=== PATIENT | male | born 1930 | race Caucasian/White ===

== ENCOUNTER 2018-05-27 14:20 | Emergency (ER) | payer OTHER ==
[~2018-05-27] VITALS: Ht 180.3 cm; Wt 86.2 kg
--- NOTE | 2018-05-27 14:33 | NUR ---
triage nurse note: No paperwork with medication list or medical history was sent with patient. i spoke to the staff at [facility] who stated they will fax the info soon
--- NOTE | 2018-05-27 14:45 | NUR ---
PATIENT IS AWAKE AND ALERT. STATES HAS SOME BACK PAIN. DENIES CHEST PAIN OR SOB.
[2018-05-27 15:15] LABS: BASOPHILS # (AUTO) 0.1 K/uL (0.0-8.0); BASOPHILS % (AUTO) 0.5 % (0.0-2.0); EOSINOPHILS # (AUTO) 0.2 K/uL (0.0-0.7); EOSINOPHILS % (AUTO) 1.9 % (0.0-7.0); HEMATOCRIT 38.3 % (36.7-47.1); HEMOGLOBIN 12.6 g/dL (12.5-16.3); LYMPHOCYTES # (AUTO) 1.2 K/uL (20.0-40.0); LYMPHOCYTES % (AUTO) 12.4 % (20.5-51.5); MEAN CORPUSCULAR HEMOGLOBIN 25.2 uug (23.8-33.4); MEAN CORPUSCULAR HGB CONC 33 g/dL (32.5-36.3); MEAN CORPUSCULAR VOLUME 76.9 fL (73.0-96.2); MONOCYTES # (AUTO) 0.7 K/uL (2.0-10.0); MONOCYTES % (AUTO) 7.2 % (0.0-11.0); NEUTROPHILS # (AUTO) 7.6 K/uL (1.8-8.9); PLATELET COUNT (AUTO) 236 K/uL (152-348); RED BLOOD CELL COUNT(AUTO) 4.97 MIL/uL (4.06-5.63); WHITE BLOOD COUNT (AUTO) 9.7 K/uL (3.6-10.2)
[2018-05-27 15:17] LABS: CARBON DIOXIDE 28 mmol/L (21-32); CHLORIDE 108 mmol/L (98-107); CREATININE 1.1 mg/dL (0.6-1.3); GLUCOSE 102 mg/dL (74-106); POTASSIUM 4.8 mmol/L (3.5-5.1); UREA NITROGEN, BLOOD 15 mg/dL (7-18)
[2018-05-27 15:23] LABS: ALANINE AMINOTRANSFERASE 25 U/L (16-63); ALKALINE PHOSPHATASE 95 U/L (50-136); ASPARTATE AMINOTRANSFERASE 22 U/L (15-37); BILIRUBIN,DIRECT 0.1 mg/dL (0.0-0.2); BILIRUBIN,TOTAL 0.3 mg/dL (0.2-1.0); TOTAL PROTEIN, SERUM 6.8 g/dL (6.4-8.2)
--- NOTE | 2018-05-27 16:49 | NUR ---
PATIENT'S SON PRESTON CALLED AND STATES HE IS THE POWER OF SHIFT SUPERVISOR MELTING FOR [facility]. STATES HE RATHER HAVE THE PATIENT GO BACK TO [facility] THEN BE ADMITTED TO THE HOSPITAL. I NOTIFIED DR BILLINGSLEY ABOUT THIS. I CALLED [facility] SINCE PATIENT IS A [facility] PATIENT AND ASKED THEM TO HAVE THE [facility] DOCTOR SPEAK TO DR BILLINGSLEY.
--- NOTE | 2018-05-27 17:32 | NUR ---
TRIP NUMBER [id number] POLYTECHNIC REGISTRAR TIME [id number]
--- NOTE | 2018-05-27 18:39 | NUR ---
[facility] HERE TO TAKE PATIENT BACK TO [facility]. SON IS AWARE. [facility]SING ST[facility]FF IS AWARE. ALL COPIES OF TESTS GIVEN TO [facility] STAFF TO GIVE TO [facility]AFF. PATIENT IS AWAKE AND ALERT AND AWARE THAT HE IS GOING BACK "HOME".
== END 2018-05-27 18:43 | disposition home or self-care (01) ==
LOC: ER 14:20
DX: S39.92XA Unspecified injury of lower back, initial encounter (principal); W19.XXXA Unspecified fall, initial encounter; Y93.89 Activity, other specified; Y92.89 Other specified places as the place of occurrence of the external cause; Y99.8 Other external cause status
CPT/HCPCS: 36415; 70030-TC; 70450; 71045; 72100; 72125; 85025; 85730; 93005; A4663

== ENCOUNTER 2019-01-19 15:17 | Inpatient (IN) | payer OTHER ==
[~2019-01-19] VITALS: Ht 180.3 cm; Wt 79.0 kg
[2019-01-19] MEDS ORDERED: PANTOPRAZOLE SODIUM IV 80 MG in IV DEXTROSE 5% 100 ML IV ONE (15:30)
[2019-01-19] MEDS ORDERED: IV NORMAL SALINE 500 ML BAG IV ONE (15:30)
[2019-01-19] MEDS ORDERED: LACT1CAP71 PO (15:37)
[2019-01-19] MEDS ORDERED: FERR325T28 PO (15:37)
[2019-01-19] MEDS ORDERED: ACET-2154 PO (15:37)
[2019-01-19] MEDS ORDERED: LORA1TAB PO (15:40)
[2019-01-19] MEDS ORDERED: BENZ200C53 PO (15:40)
[2019-01-19] MEDS ORDERED: PANTOPRAZOLE SODIUM 40 MG VIAL ONE (15:51)
[2019-01-19 15:59] LABS: BASOPHILS # (AUTO) 0.1 K/uL (0.0-8.0); BASOPHILS % (AUTO) 0.4 % (0.0-2.0); EOSINOPHILS % (AUTO) 0.1 % (0.0-7.0); HEMATOCRIT 45.9 % (36.7-47.1); HEMOGLOBIN 14.9 g/dL (12.5-16.3); LYMPHOCYTES # (AUTO) 0.7 K/uL (20.0-40.0); LYMPHOCYTES % (AUTO) 4.2 % (20.5-51.5); MEAN CORPUSCULAR HEMOGLOBIN 26.4 uug (23.8-33.4); MEAN CORPUSCULAR HGB CONC 33 g/dL (32.5-36.3); MEAN CORPUSCULAR VOLUME 81.2 fL (73.0-96.2); MONOCYTES # (AUTO) 0.5 K/uL (2.0-10.0); MONOCYTES % (AUTO) 3.2 % (0.0-11.0); NEUTROPHILS # (AUTO) 15.6 K/uL (1.8-8.9); NEUTROPHILS % (AUTO) 92.1 % (38.5-71.5); PLATELET COUNT (AUTO) 243 K/uL (152-348); RED BLOOD CELL COUNT(AUTO) 5.65 MIL/uL (4.06-5.63)
[2019-01-19] MEDS ORDERED: ONDANSETRON 4 MG/2 ML VIAL IV ONE ×2 (16:00→20:30)
[2019-01-19] MEDS ORDERED: MORPHINE SULFATE 4 MG/1 ML DISP.SYRIN IV ONE ×2 (16:00→20:30)
[2019-01-19 16:04] LABS: CARBON DIOXIDE 25 mmol/L (21-32); CHLORIDE 105 mmol/L (98-107); CREATININE 1.1 mg/dL (0.6-1.3); GLUCOSE 211 mg/dL (74-106); POTASSIUM 4.7 mmol/L (3.5-5.1); UREA NITROGEN, BLOOD 19 mg/dL (7-18)
[2019-01-19 16:09] LABS: ALANINE AMINOTRANSFERASE 19 U/L (16-63); ALKALINE PHOSPHATASE 89 U/L (50-136); ASPARTATE AMINOTRANSFERASE 15 U/L (15-37); BILIRUBIN,DIRECT 0.1 mg/dL (0.0-0.2); BILIRUBIN,TOTAL 0.3 mg/dL (0.2-1.0); LIPASE 234 U/L (73-393); TOTAL PROTEIN, SERUM 6.4 g/dL (6.4-8.2)
[2019-01-19] MEDS ORDERED: MORPHINE SULFATE 4 MG/1 ML DISP.SYRIN ONE ×2 (16:32→20:33)
[2019-01-19] MEDS ORDERED: ONDANSETRON 4 MG/2 ML VIAL ONE ×2 (16:32→20:33)
--- NOTE | 2019-01-19 17:06 | NUR ---
[facility] WAS SEEN BY MD. HE IS AWAKE AND ALERT. HE HAS HAD [address] PATTERSON AWARE. PATIENT STATES HE HAS "DISCOMFORT" IN HIS BELLY BUT NOT A LOT OF PAIN. HE WAS GIVEN MORPHNE WHICH MINIMIZED HIS DISCOMFORT SIGNIFICANTLY AND BP ALSO CAME DOWN.
[2019-01-19] MEDS ORDERED: PIPERACILLIN SODIUM/TAZOBACTAM 3.375 G in IV DEXTROSE 5% 50 ML IV ONE (18:15)
[2019-01-19] MEDS ORDERED: PIPERACILLIN/TAZOBACTAM/D5W 50 ML IV ONE (18:36)
--- NOTE | 2019-01-19 19:14 | NUR ---
HAND OFF REPORT GIVEN TO TAB PETERSON
--- NOTE | 2019-01-19 19:20 | NUR ---
Received report from Miguel Angel PETERSON, assumed care of pt.,
--- NOTE | 2019-01-19 20:09 | NUR ---
Called [facility] for panel call, awaiting call back from Dr. Huggins, family at bedside, pt. denies pain, is alert and responsive, obeys simple commands, bed in low position, bedrails up, all pt. needs met, IV intact,
--- NOTE | 2019-01-19 20:16 | NUR ---
Dr. Lundberg on phonen w/ Dr. Huggins, called for bed- pt. to go into tele 306 w/ Radha PETERSON,
[2019-01-19] MEDS ORDERED: HYDROCODONE/APAP 5-325MG TABLET PO PRN (20:45)
[2019-01-19] MEDS ORDERED: LORAZEPAM 2 MG/1 ML VIAL IV PRN (20:45)
[2019-01-19] MEDS ORDERED: ONDANSETRON 4 MG/2 ML VIAL IV PRN (20:45)
[2019-01-19] MEDS ORDERED: Z GUARD REMEDY PASTE 57 GM TUBE TOP PRN (20:45)
[2019-01-19] MEDS ORDERED: MORPHINE SULFATE 2 MG/1 ML DISP.SYRIN IV PRN (20:45)
[2019-01-19] MEDS ORDERED: MAGNESIUM HYDROXIDE 30 ML LIQUID UDC PO PRN (20:45)
--- NOTE | 2019-01-19 21:00 | NUR ---
power lineman technician. at bedside for blood draw,
--- NOTE | 2019-01-19 21:05 | NUR ---
Gave report to Radha PETERSON
--- NOTE | 2019-01-19 21:26 | NUR ---
Spoke w/ Suni from [facility], they do not have POLST or Advanced Directive,
[2019-01-19 21:30] VITALS: BP 157/70
--- NOTE | 2019-01-19 21:30 | NUR ---
Admitted a 88 year old male with diagnosis of HERNIA. Patient is AAOx2. No s/s of acute distress at this time. On o2 at 2L NC in place. IV on left FA intact and patent. Routine admission care done. Plan of care initiated. Comfort and safety measures implemented. Will continue to monitor throughout shift. Addendum: 01/19/19 at 2225 by LOPEZ JOHNSON RN Incorrect time. Correct time: 2139. SR on tele monitor.
--- NOTE | 2019-01-19 21:39 | NUR ---
Pt. taken off unit via stretcher for admit to 306 tele,
[2019-01-19] MEDS ORDERED: IV NS 1000 ML 1,000 ML IV SCH (22:00)
[2019-01-20] VITALS: BP 132/76
[2019-01-20 04:00] VITALS: BP 151/72
[2019-01-20] MEDS: ACETAMINOPHEN 325 MG TABLET PO PRN (04:25)
[2019-01-20 06:14] LABS: CARBON DIOXIDE 22 mmol/L (21-32); CHLORIDE 108 mmol/L (98-107); CHOLESTEROL 168 mg/dL (<200); CREATININE 1.3 mg/dL (0.6-1.3); GLUCOSE 197 mg/dL (74-106); HDL CHOLESTEROL 43 mg/dL (40-60); MAGNESIUM 1.7 mg/dL (1.8-2.4); PHOSPHOROUS 2.6 mg/dL (2.5-4.9); POTASSIUM 5.1 mmol/L (3.5-5.1); TRIGLYCERIDES 76 MG/DL (30-150); UREA NITROGEN, BLOOD 38 mg/dL (7-18)
[2019-01-20 06:36] LABS: HEMATOCRIT 45.6 % (36.7-47.1); HEMOGLOBIN 14.5 g/dL (12.5-16.3); LYMPHOCYTES # (AUTO) 0.4 K/uL (20.0-40.0); LYMPHOCYTES % (AUTO) 1.8 % (20.5-51.5); MEAN CORPUSCULAR HEMOGLOBIN 25.8 uug (23.8-33.4); MEAN CORPUSCULAR HGB CONC 32 g/dL (32.5-36.3); MONOCYTES % (AUTO) 5.2 % (0.0-11.0); NEUTROPHILS # (AUTO) 17.8 K/uL (1.8-8.9); PLATELET COUNT (AUTO) 360 K/uL (152-348); RED BLOOD CELL COUNT(AUTO) 5.63 MIL/uL (4.06-5.63); WHITE BLOOD COUNT (AUTO) 19.1 K/uL (3.6-10.2)
--- NOTE | 2019-01-20 06:49 | NUR ---
Patient resting comfortable in bed. No acute distress noted. NS running at 100 mls/hr. Repositioned, cleaned and kept comfortable. Patient temperature 99.5. PRN Tylenol administered and cooling measures implemented. Denies pain at this time and verbalizes feeling better than earlier. All needs met. Call light within reach. Safety measures implemented. Continue plan of care. Will endorse to incoming shift accordingly.
--- NOTE | 2019-01-20 07:20 | NUR ---
received patient from hot wound spring production supervisor,Patient resting comfortable in bed. No acute distress noted. NS running at 100 mls/hr. per hot wound spring production supervisor nurse Patient temperature 99.5. PRN Tylenol administered and cooling measures implemented. Denies pain at this time and verbalizes feeling better than earlier. All needs met. Call light within reach. Safety and comfort measures implemented.
[2019-01-20] MEDS ORDERED: IV NS 1000 ML 1,000 ML IV PRN (07:49)
[2019-01-20] MEDS ORDERED: LORAZEPAM 2 MG/1 ML VIAL IV PRN (09:00)
--- NOTE | 2019-01-20 10:00 | NUR ---
patient' IV site has changed, new IV on right forearm 20 gauge , NS IS DISCONTINUED BY DOCTOR JACKSON, MORPHINE IS PRESCRIBED 2MG , STARTED MORPHINE 2 MG/HR IV AT 10:00 AM , WILL CONTINUE TO PROVIDE COMFORT CARE
[2019-01-20] MEDS: MORPHINE SULFATE PF IV DRIP 250 MG in IV DEXTROSE 5% 240 ML IV PRN (10:26)
[2019-01-20 11:30] VITALS: BP 132/62
--- NOTE | 2019-01-20 15:49 | NUR ---
DIDN'T INCREASE MORPHINE RATE PER DOCTOR ANDONIAN ORDER BECAUSE PATIENT TOLERATING WELL, NO DISTRESS , NO PAIN NOTED
--- NOTE | 2019-01-20 18:52 | NUR ---
Patient resting comfortable in bed. No acute distress noted. MORPHINE 2 MG/HR IS RUNNING Repositioned, cleaned and kept comfortable. Patient temperature 98.1, HR IS 93, UNDER VOICE ENGINEER. Denies pain at this time and verbalizes feeling better than earlier. FAMILY AT BED SIDE. All needs are met. Call light within reach. Safety measures implemented. Continue plan of care. Will endorse to incoming shift accordingly.
[2019-01-20 19:16] VITALS: BP 168/71
[2019-01-20 23:46] VITALS: BP 178/74
--- NOTE | 2019-01-21 00:48 | NUR ---
Patient currently receiving Morphine drip at 6mls/hr. No acute distress noted. Patient resting comfortably in bed. Safety measures implemented. All needs met. Per MD order, patient d/c from telemetry. Patient resting comfortable in bed at this time.
[2019-01-21 03:19] VITALS: BP 119/64
[2019-01-21] MEDS: ACETAMINOPHEN 325 MG TABLET PO PRN ×2 (03:48→04:01)
--- NOTE | 2019-01-21 06:03 | NUR ---
No change in status. IV on right forearm intact and patent with Morphine drip at 6ml/hr. Comfort provided at all times. Cleaned, repositioned and safety measures implemented. Continue plan of care. Will endorse to morning shift accordingly.
[2019-01-21 06:22] LABS: BASOPHILS % (AUTO) 0.1 % (0.0-2.0); HEMOGLOBIN 13.7 g/dL (12.5-16.3); LYMPHOCYTES # (AUTO) 0.6 K/uL (20.0-40.0); LYMPHOCYTES % (AUTO) 4.2 % (20.5-51.5); MEAN CORPUSCULAR HEMOGLOBIN 26.2 uug (23.8-33.4); MEAN CORPUSCULAR HGB CONC 33 g/dL (32.5-36.3); MEAN CORPUSCULAR VOLUME 80.4 fL (73.0-96.2); MONOCYTES # (AUTO) 1.2 K/uL (2.0-10.0); MONOCYTES % (AUTO) 7.9 % (0.0-11.0); NEUTROPHILS # (AUTO) 12.9 K/uL (1.8-8.9); NEUTROPHILS % (AUTO) 87.8 % (38.5-71.5); PLATELET COUNT (AUTO) 348 K/uL (152-348); RED BLOOD CELL COUNT(AUTO) 5.23 MIL/uL (4.06-5.63); WHITE BLOOD COUNT (AUTO) 14.7 K/uL (3.6-10.2)
[2019-01-21 06:37] LABS: CARBON DIOXIDE 23 mmol/L (21-32); CHLORIDE 113 mmol/L (98-107); CREATININE 1.7 mg/dL (0.6-1.3); GLUCOSE 144 mg/dL (74-106); POTASSIUM 4.8 mmol/L (3.5-5.1); UREA NITROGEN, BLOOD 62 mg/dL (7-18)
--- NOTE | 2019-01-21 07:30 | NUR ---
Lethargic, obtunded, on moderate high back rest. O2 at 2L/NC. Morphine drip at 6mg/hr.
[2019-01-21] MEDS: ATROPINE SULFATE 1% OPHT DROP 2 ML SL SCH ×3 (10:15→22:35)
[2019-01-21] MEDS: MORPHINE SULFATE PF IV DRIP 250 MG in IV DEXTROSE 5% 240 ML IV PRN ×3 (10:16→18:06)
--- NOTE | 2019-01-21 10:16 | NUR ---
Noted labored breathing with coarse breath sounds. Secretions suctioned. Morphine drip titrated for comfort
--- NOTE | 2019-01-21 12:20 | NUR ---
Noted, jerking movements of extremities. Ativan given as ordered
[2019-01-21 14:59] VITALS: BP 78/42
--- NOTE | 2019-01-21 15:00 | NUR ---
Crackles noted. Secretions suction to jimenez to greenish and dark brown. With fair airway after. Morphine titrated. Patient appears comfortable.
--- NOTE | 2019-01-21 18:06 | NUR ---
Labored deep breathing, respiration 12/min; Morphine drip titrated to 10 mg at 10ml/hr for comfort.
--- NOTE | 2019-01-21 19:30 | NUR ---
PATIENT RECEIVED LYING IN BED. NO SIGNS OF ACUTE DISTRESS. COMFORT MEASURES PROVIDED. BED IN LOWEST POSITION. SIDE RAILS UP X2. CALL LIGHT WITHIN REACH.
--- NOTE | 2019-01-21 19:31 | NUR ---
RECEIVED PT ON BED. MORPHINE DRIP INFUSING AT 10MG/HR. PT ON DNR/DNI. PT SHOWS NO SIGNS OF ACUTE DISTRESS. SAFETY AND COMFORT PROVIDED. WILL CONTINUE TO MONITOR.
--- NOTE | 2019-01-21 20:30 | NUR ---
PT HAVE NO FACIAL GRIMACE AND NO MOANING. PT STILL APPEARS COMFORTABLE. QUIET ENVIRONMENT. ORAL CARE RENDERED. SAFETY AND COMFORT PROVIDED. WILL CONTINUE TO MONITOR.
--- NOTE | 2019-01-21 21:30 | NUR ---
PT HAVE NO FACIAL GRIMACE AN NO MOANING. PT STILL APPEARS COMFORTABLE. RESPIRATION RATE 18. SAFETY AND COMFORT PROVIDED. WILL CONTINUE TO MONITOR.
--- NOTE | 2019-01-21 22:20 | NUR ---
PT RESPIRATION IS SLOWLY DECLINING. PT STILL APPEARS COMFORTABLE. SAFETY AND COMFORT PROVIDED. WILL CONTINUE TO MONITOR.
--- NOTE | 2019-01-21 22:39 | NUR ---
PT BECOME PALE , COLD AND CLAMMY. PT APNEIC FOR 5 MINUTES. PUPILS FIXED AND DILATED. NO AUDIBLE HEART TONES, BREATH SOUND FOR 1 MINUTE. NO PALPABLE PULSES FOR 1 MINUTE. NO CORNEAL REFLEXES. PATIENT PRONOUNCED AT 2244H. DR. JACKSON , [facility]UR[facility] , AND [facility] NOTIFIED . SON WAS NOTIFIED AT 2300H. POSTMORTEM CARE RENDERED AND APPROPRIATE PAPERWORKS COMPLETED. [employer] NOTIFIED REGARDING GROUP SALES REPRESENTATIVE OF [employer].
--- NOTE | 2019-01-21 23:45 | NUR ---
FAMILY AT BEDSIDE. EMOTIONAL SUPPORT PROVIDED. ALLOWED SOMETIME TO GRIEVE AND SAY GOODBYE.
--- NOTE | 2019-01-22 00:45 | NUR ---
MORTICIAN CAME AND M[employer] INSTRUCTIONAL DESIGNER THE [employer]. APPROPRIATE PAPERWORK COMPLETED. NO BELONGINGS.
== END 2019-01-22 00:45 | disposition expired | DRG 391 ==
LOC: ER 15:17 → TELE3 21:20 → MEDSURG3 01-21 00:34
PROVIDERS: ADMIT Family Medicine; ATTEND Family Medicine
DX: K44.9 Diaphragmatic hernia without obstruction or gangrene (principal); K63.1 Perforation of intestine (nontraumatic); N17.9 Acute kidney failure, unspecified; E44.1 Mild protein-calorie malnutrition; E87.2 Acidosis; J98.11 Atelectasis; Z51.5 Encounter for palliative care; Z66 Do not resuscitate; G30.9 Alzheimer's disease, unspecified; F02.80 Dementia in other diseases classified elsewhere, unspecified severity, without behavioral disturbance, psychotic disturbance, mood disturbance, and anxiety; E78.5 Hyperlipidemia, unspecified; M81.0 Age-related osteoporosis without current pathological fracture; I25.10 Atherosclerotic heart disease of native coronary artery without angina pectoris; I11.9 Hypertensive heart disease without heart failure; I70.0 Atherosclerosis of aorta; D72.829 Elevated white blood cell count, unspecified
CPT/HCPCS: 36415; 70030-TC; 71045; 83605; 83690; 83735; 84100; 85025; 85730; 86850; 86900; 86901; 87040; 93005; A4217; A4663; C9113; G0378; J2060; J2270; J2274; J2405; J2543; J7030; J7040; J7060